=== PATIENT | male | born 1985 | race Caucasian/White ===

== ENCOUNTER 2023-01-05 20:02 | Emergency (ER) | payer SELFPAY ==
[~2023-01-05] VITALS: Ht 188 cm; Wt 111.1 kg
[2023-01-05 20:22] VITALS: BP 106/65
--- NOTE | 2023-01-05 20:30 | ER.PDOC ---
General Chief Complaint: Requesting Medical Care Stated Complaint: SEVERE HEADACHE Time seen by MD: 20:22 Source: patient (friend) Exam Limitations: no limitations History of Present Illness Initial Comments 37 yo M has had headache/L eye pain since this morning. No scotomata, some flashers and floaters, no darkening of vision. He reports his mother had a history of severe migraine headaches which required hospitalization at points and that she in her early 40s from a brain hemorrhage. No nausea or vomiting. Photophobia. Timing/Duration: other (around 12 hours.) Modifying Factors: improves with exposure to light Past Medical History Medical History: no pertinent history Surgical History: no surgical history Family History Significant Family History: other (severe migraines in mother, also some kind of hemorrhage which proved fatal) Social History Alcohol Use: occassionally Reviewed Nursing Reviewed: Vital Signs, Abn. Noted, Nursing Assessment Review of Systems Constitutional: no symptoms reported Eyes: see HPI Ears, Nose, Mouth, Throat: no symptoms reported Respiratory: no symptoms reported Cardiovascular: no symptoms reported Gastrointestinal: no symptoms reported Genitourinary: no symptoms reported Musculoskeletal: no symptoms reported Skin: no symptoms reported All Other Systems: Reviewed and Negative Physical Exam General Appearance: Mild Distress, Moderate Distress Head/Eyes: eyes nml inspection (Limited fundoscopic shows normal red reflex and visualized portions of fundus seem sharp/not greatly altered. ) ENT: nml ENT inspection Respiratory: lungs clear, normal breath sounds Gastrointestinal: Normal Bowel Sounds, Non Tender Back: Normal Inspection Extremities: Normal Range of Motion, Non-Tender Psychiatric: Alert, Oriented x 3 Cranial Nerves: Normal Hearing, PERRL, Other (EOMF) Motor/Sensory: No Motor Deficit, No Sensory Deficit Results/Orders Results/Orders Orders - GABRIELA LEGGETT MD Ct Head Wo Contrast (01/05/23 20:30) Ketorolac Tromethamine (Toradol) (01/05/23 21:20) Dexamethasone Sodium Phosp/Pf (Decadron) (01/05/23 21:20) Dexamethasone Sodium Phosp/Pf (Decadron) (01/05/23 21:37) Ketorolac Tromethamine (Toradol) (01/05/23 21:37) Promethazine Hcl (Phenergan) (01/05/23 21:41) Promethazine Hcl (Phenergan) (01/05/23 21:51) Vital Signs Date Time Temp Pulse Resp B/P (MAP) Pulse Ox O2 Delivery O2 Flow Rate FiO2 01/05/23 21:10 89 16 117/54 (75) 97 Room Air* 0 21 01/05/23 20:22 97.7 101 18 96 Administered Medications Medications (Trade) Dose Ordered Sig/Brandon Route PRN Reason Start Time Stop Time Status Last Admin Dose Admin Ketorolac Tromethamine (Toradol) 30 mg STAT STAT IV 01/05/23 21:20 01/05/23 21:22 DC 01/05/23 21:40 30 MG Promethazine HCl (Phenergan) 25 mg STAT STAT IV 01/05/23 21:41 01/05/23 21:42 DC 01/05/23 21:[address] is negative. Improving with toradol/decadron/phenergan. We will discharge; I have recommended clinic followup and a proper fundoscopic exam from cobol programmer. EKG/XRAY/CT/US CT Comments: see report. nothing overly concerning/some ethmoidal thickening ER DEPART Departure Time of Disposition: 22:44 Disposition: 01 HOME / SELF CARE / HOMELESS Impression: Primary Impression: Migraine headache Additional Impression: Left eye pain Condition: Improved Duration or Time Spent with Pa: 15 min Problem Qualifiers GABRIELA LEGGETT MD Jan 05, 2023 20:30
[2023-01-05 21:10] VITALS: BP 117/54
[2023-01-05] MEDS ORDERED: DECADRON IV STA (21:20)
[2023-01-05] MEDS ORDERED: TORADOL IV STA (21:20)
[2023-01-05] MEDS ORDERED: TORADOL ONE (21:37)
[2023-01-05] MEDS ORDERED: DECADRON ONE (21:37)
[2023-01-05] MEDS ORDERED: PHENERGAN IV STA (21:41)
[2023-01-05] MEDS ORDERED: PHENERGAN ONE (21:51)
--- NOTE | 2023-01-05 21:53 | DIREP ---
PROCEDURE:CT HEAD OR BRAIN W/O CONTRAST COMPARISON:None. INDICATIONS:severe headache, L eye pain TECHNIQUE:CT images were created without intravenous contrast. FINDINGS: VENTRICLES:The ventricles are normal in size and configuration. CEREBRUM:Normal cerebral morphology with appropriate covington white matter differentiation. CEREBELLUM:Negative. BRAINSTEM:Negative. BASAL CISTERNS:Negative. HEMORRHAGE (Vol L*W*H*.52):No MASS LESION:No ACUTE INFARCT:No SKULL:Normal. SINUSES:Mild mucosal thickening in the ethmoid air cells. OTHER:Mild right frontal scalp skin thickening. Clinically correlate. Otherwise no significant soft tissue swelling or hematoma. Visualized orbits are unremarkable. CONCLUSION: 1. No acute intracranial abnormality. 2. Mild mucosal thickening in the ethmoid air cells. Dictated by: Napoleon Vaughn M.D. on 01/05/2023 at 09:50 PM
[2023-01-05 23:16] VITALS: BP 131/86
== END 2023-01-05 23:16 | disposition home or self-care (01) ==
LOC: EDBD 20:02 → ER 20:02
DX: G43.909 Migraine, unspecified, not intractable, without status migrainosus (principal); H57.12 Ocular pain, left eye
CPT/HCPCS: 99285; 96374; 70450; 96375; J1100; J1885; J2550